=== PATIENT | female | born 1980 | race American Indian/Alaskan Native ===

== ENCOUNTER 2020-12-07 15:06 | Emergency (ER) | payer MEDICARE ==
[2020-12-07 16:17] LABS: Bacteria,Urine 4+ /HPF (Negative); Bilirubin,Urine NEG (Negative); Blood,Urine NEG (Negative); Color,Urine Amber (Yellow); Mucus,Urine 3+ /HPF; Urobilinogen,Urine < 2.0 mg/dL (<2.0)
[2020-12-07 16:27] LABS: HCG Qualitative,Urine Negative (Negative)
[2020-12-07 16:44] LABS: Amphetamine Screen,Urine PRESUMPTIVE NEGATIVE; Benzodiazepines Screen,Urine PRESUMPTIVE NEGATIVE; Cannabinoid Screen,Urine PRESUMPTIVE NEGATIVE; Cocaine Screen,Urine PRESUMPTIVE NEGATIVE; Methadone Screen,Urine PRESUMPTIVE POSITIVE; Opiate Screen,Urine PRESUMPTIVE NEGATIVE
[2020-12-07 16:49] LABS: Hematocrit 38.3 % (30.3-42.9); Hemoglobin 12.7 gm/dl (10.1-14.3); Mean Corpuscular HGB Conc 33 % (30-34); Mean Corpuscular Volume 82 fl (79-97); Platelet Count 467 K/mm3 (140-440); Red Blood Count 4.65 M/mm3 (3.65-5.03); Red Cell Distribution Width 14.2 % (13.2-15.2)
[2020-12-07 17:33] LABS: Alanine Aminotransferase 27 units/L (7-56); Albumin 4.5 g/dL (3.9-5); Blood Urea Nitrogen 10 mg/dL (7-17); Calcium 9.4 mg/dL (8.4-10.2); Hemolysis Index 3
[2020-12-07 17:36] LABS: BUN/Creatinine Ratio 14
[2020-12-07 18:13] VITALS: BP 130/90
[2020-12-07 18:35] LABS: Total Cells Counted 100
[2020-12-07 18:37] LABS: Platelet Estimate Consistent w Auto; RBC Morphology Normal
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
== END 2020-12-07 19:10 | disposition home or self-care (01) ==
LOC: ED 15:06
DX: F11.90 Opioid use, unspecified, uncomplicated (principal); N39.0 Urinary tract infection, site not specified
CPT/HCPCS: 36415; 80053; 80307; 80320; 81001; 81025; 83690; 83735; 85007; 85025; 87086; 99283; G0480